=== PATIENT | female | born 1980 | race African-American/Black ===

== ENCOUNTER 2018-08-02 09:30 | Observation (INO) ==
--- NOTE | 2018-07-25 08:41 | PAT Medication Instructions ---
Medication Instructions Date of Service July 25, 2018 Home Medications acetaminophen [Tylenol] 325 mg PO Q6H PRN naproxen sodium [Aleve] 220 mg PO Q8H TN ASK your surgeon for instructions naproxen sodium [Aleve] 220 mg PO Q8H TN Take morning of surgery With a small sip of water, OTHERWISE NOTHING TO EAT OR DRINK AFTER MIDNIGHT: acetaminophen [Tylenol] 325 mg PO Q6H PRN (if needed, may be taken up to four hours before surgery) Other Notes If you have any questions please call us at [phone] or [phone] or [phone] or [phone]
--- NOTE | 2018-07-25 12:26 | Anesthesiology Consultation ---
Date of Service July 25, 2018 Assessment & Plan (1) Encounter for pre-operative examination: TEST AM DOS Chart Review Chart Review: Acceptable Risk for Surgery and Patient seen in Pre Admission Testing Teaching & Discussion Instructed NPO after midnight before surgery, except medications with 15 cc of water. Medication instructions provided according to the PAT guidelines. History Surgery Operation Date: 08/02/18 11:15 Proposed Procedures p Robotic Assisted Myomectomy - [facility] Hi Height/Weight Height: 5 ft 2.5 in Weight: 51 kg Allergies Allergy/AdvReac Type Severity Reaction Status Date / Time No Known Allergies Allergy Verified 07/17/18 14:03 Medications Home Medications Medication Instructions Recorded Confirmed Last Taken acetaminophen [Tylenol] 325 mg PO Q6H PRN 07/17/18 07/17/18 Unknown naproxen sodium [Aleve] 220 mg PO Q8H PRN 07/17/18 07/17/18 Unknown Past Medical History Medical History History of ovarian cyst Uterine fibroid Exercise / Class Metabolic Activity 1 > 8 Run/Swim/Ski/Tennis Past Surgical History Surgical History History of excision of lesion Rt wrist - benign History of tooth extraction Past Anesthesia History No Hx of Anesthesia Complications and No Family Hx of Anesthesia Complications History of PONV No Hx of PONV and Hx of Motion Sickness Social History Smoking Status: Never smoker Do You Dip or Chew Tobacco: No Hx Alcohol Use: No Hx Substance Use: No substance use type: does not use Review of Systems Pt denies any recent chest pain, shortness of breath, palpitations, cough, fever or URI. Physical Exam Vital Signs BP: 108/69 P: 80bpm SPO2: 99% RA T: 98.8 F R: 12 ENMT Mouth: + dental restorations (caps on root canals lower molar B/L); no chipped teeth and no loose teeth Thyromental Distance: > or= 3.5 Finger Breadths (3.5) Mallampati Class: II Neck normal visual inspection; neck extension not limited Respiratory normal respiratory effort Auscultation: lungs clear to auscultation bilaterally Cardiovascular Rate/Rhythm: regular rate and regular rhythm Heart Sounds: no murmur Extremities: no edema Testing Laboratory Results 07/25/18 12:28 07/25/18 12:28 Blood Type B Positive Antibody Screen NEGATIVE
[2018-07-25 12:42] LABS: Basophils # (auto) 0.01 K/uL (0-0.2); Basophils % (auto) 0.1 %; Eosinophils # (auto) 0.05 K/uL (0-0.5); Eosinophils % (auto) 0.7 %; Hematocrit (blood only) 35.4 % (37-47); Hemoglobin 11.7 g/dL (12.0-16.0); Immature Granulocytes # (auto) 0.01 K/uL (0.00-0.02); Immature Granulocytes % (auto) 0.1 %; Lymphocytes # (auto) 1.59 K/uL (1.2-3.4); Lymphocytes % (auto) 23.6 %; Mean Corpuscular Hgb Conc 33.1 g/dL (32-36); Mean Corpuscular Volume 83.9 fL (80-100); Mean Platelet Volume 9.7 fL (7.4-10.4); Monocytes # (auto) 0.57 K/uL (0.11-0.59); Monocytes % (auto) 8.5 %; Neutrophils # (auto) 4.51 K/uL (1.4-6.5); Platelet Count 291 K/uL (130-400); RDW Coefficient of Variation 13.1 % (11.5-14.5); RDW Standard Deviation 39.6 fL (36.4-46.3); Red Blood Count 4.22 M/uL (4.2-5.4); White Blood Count 6.74 K/uL (4.8-10.8)
[~2018-08-02 09:30] MED LIST: CEFAZOLIN 2000MG 2,000 MG/15 ML SYR IV SCH; LACTATED RINGER'S 1,000 ML IV SCH; LR 15ML/HR IV SCH; SODIUM CHLORIDE 0.9% 1000ML 1,000 ML IV SCH
--- NOTE | 2018-08-02 10:43 | History & Physical Bridge Note ---
Date of Service August 02, 2018 History & Physical Bridge Note I have examined the patient, reviewed the History & Physical and in the interval since the performance of the History & Physical I have noted the following changes of clinical significance: no changes noted
[2018-08-02] MEDS ORDERED: DEXAMETHASONE SOD INJ 4 MG/ML VIAL ONE (11:34)
[2018-08-02] MEDS ORDERED: ONDANSETRON INJ 2 MG/ML 2 ML VIAL IV PRN ×2 (11:34→15:01)
[2018-08-02] MEDS ORDERED: HYDROmorphone INJ 0.5 MG/0.5 ML SYR IV PRN (11:34)
[2018-08-02] MEDS ORDERED: NEOSTIGMINE METHYLSULFATE 5 MG/5 ML SYR ONE (11:34)
[2018-08-02] MEDS ORDERED: ATROPINE SULFATE 0.1 MG/ML 10ML SYR IV PRN (11:34)
[2018-08-02] MEDS ORDERED: KETOROLAC 30 MG/ML VIAL IV PRN ×2 (11:34→23:15)
[2018-08-02] MEDS ORDERED: ONDANSETRON INJ 2 MG/ML 2 ML VIAL ONE ×2 (11:34→13:51)
[2018-08-02] MEDS ORDERED: PROPOFOL IV EMULSION 10 MG/ML 20 ML VIAL IV ONE (11:34)
[2018-08-02] MEDS ORDERED: LIDOCAINE HCL 2% 2 ML VIAL/AMP(20MG/ML) INFIL ONE (11:34)
[2018-08-02] MEDS ORDERED: GLYCOPYRROLATE 0.2 MG/ML VIAL ONE ×2 (11:34→13:51)
[2018-08-02] MEDS ORDERED: MIDAZOLAM HCL 1 MG/ML 2ML VIAL ONE (11:35)
[2018-08-02] MEDS ORDERED: fentaNYL citrate 100 MCG/2 ML VIAL ONE (11:35)
[2018-08-02] MEDS ORDERED: BUPIVACAINE 0.5 % 5 MG/1 ML MPF 30ML VIAL ONE (11:57)
[2018-08-02] MEDS ORDERED: VASOPRESSIN 20 UNIT/ML VIAL ONE (12:19)
[2018-08-02] MEDS ORDERED: HYDROmorphone INJ 2 MG/ML SYR/VIAL ONE (12:30)
[2018-08-02] MEDS ORDERED: TISSEEL FIBRIN SEALANT 10ML TOP ONE (13:25)
[2018-08-02] MEDS ORDERED: ROCURONIUM BROMIDE 10 MG/ML 5 ML VIAL ONE (13:51)
[2018-08-02] MEDS ORDERED: FLOSEAL HEMOSTATIC MATRIX 10ML TOP ONE (13:51)
--- NOTE | 2018-08-02 14:58 | Post Operative Brief Note ---
Immediate Post Op Note v1 Date of Surgery August 02, 2018 Pre & Post Diagnosis Operation Date: 08/02/18 11:15 Pre-Op Diagnosis: Uterine fibroids, pelvic pain Post-Op Diagnosis: Uterine fibroids, pelvic pain Procedure Operation Date: 08/02/18 11:15 Actual Procedures p Robotic Assisted Laparoscopic Myomectomy - Krissy Hi Surgeon [facility] Hi Nurse Specialist Chastity Baltazar PA-C Estimated Blood Loss 20 Findings Consistent with Post-Op Diagnosis Drains Cole Catheter (16 occitan cole placed by Akanksha SOFIA placed at begining of surgery. Cole discontinued at end of surgery by Sarah Edwards RN without any difficulty, clear yellow urine, 800ml urine output obtained)
[2018-08-02] MEDS ORDERED: OXYCODONE/ACETAMINOPHEN 5mg/325mg TAB PO PRN (15:01)
[2018-08-02] MEDS ORDERED: METOCLOPRAMIDE HCL INJ 5 MG/ML 2 ML VIAL IV PRN (15:01)
--- NOTE | 2018-08-02 15:28 | Operative Report ---
Post Operative Report Pre & Post Diagnosis Operation Date: 08/02/18 11:15 Pre-Op Diagnosis: Uterine fibroids, pelvic pain Post-Op Diagnosis: Uterine fibroids, pelvic pain Procedure Operation Date: 08/02/18 11:15 Actual Procedures p Robotic Assisted Laparoscopic Myomectomy - Kriss[facility] Hi Surgeon Kriss[facility] Hi Contract Modeler Chastity Baltazar PA-C Estimated Blood Loss 20 Findings See Below 1. 8 cm anteverted uterus 2. 5 cm anterior subserosal myoma near the right cornua with a stalk 3. 2-3 cm anterior subserosal myoma on the right uterine boday 4. 0.5-1 cm fundal subserosal left myoma 5. 2-3 cm anterior subserosal myoma near the left cornua 6. 0.5-1 cm posterior subserosal on the right uterine body 7. 1 cm posterior myoma near the left uterosacral ligament 8. Normal appearing left fallopian tube and ovary 9. Right fallopian tube with a simple appearing paratubal cyst 10. Normal appearing right ovary 11. Anterior and posterior cul-de-sacs free of adhesions or lesions 12. Normal appearing liver edge 13. Normal appearing appendix Fluids 1500 ml Specimens Six uterine fibroids Drains Cole catheter removed prior to the end of the procedure Anesthesia Type General Complications none Disposition Disposition: Recovery Room Indications 38 yo with multiple uterine fibroids experiencing pelvic pain, pelvic pr essure, and heavy menstrual bleeding desiring surgical management. Description of Procedure The patient was taken to the operating room where she was identified as herself, placed in the dorsal lithotomy position with general anesthesia administered without difficulty. She was prepped and draped in the usual sterile fashion. A cole catheter was inserted without difficulty. A weighted speculum was placed in the vagina and a Parker retractor was placed anteriorly. The anterior lip of the cervix was grasped with a single-tooth tenaculum. The uterus was sounded to 8 cm with a uterine sound. A stay suture using 0 Vicryl on a UR-6 was placed on the anterior lip of the cervix. The cervix was dilated to accommodate the Advincula uterine manipulator, which was introduced into the uterine cavity with the intrauterine balloon insufflated and the appropriately sized colpotomy cup placed around the cervix snugly. The Parker, tenaculum and speculum were removed from the patients vagina, and attention was turned to the patients abdomen. A 12-mm incision was made approximately two fingerbreadths above the umbilicus, and direct entry with a 12-mm trocar was introduced with a 0-degree laparoscope confirming intraabdominal placement. The abdomen was insufflated with CO2 gas. Findings were that of a multi-fibroid uterus measuring 8 cm and normal fallopian tubes (simple appearing right paratubal cyst) and ovaries bilaterally. The patient was placed in steep Trendelenburg positioning and the bowel was displaced superiorly with the robotic trocar arms placed in the left lower quadrant, left upper quadrant, and right lower quadrant respectively under direct visualization accommodating the 8-mm robotic trocar site. A final fifth incision was made in the right upper quadrant to accommodate a 12-mm surgical aide port site. The da Laura robot was subsequently docked without any complications. The base of all fibroids were then injected with a dilute solution of vasopression. Using bipolar cautery and the vessel sealer, each fibroid was grasped, coagulated and cut. After removal of all fibroids, an 0 V-loc sutures was introduced into the pelvic cavity and the fibroids were sutured together like a string of pearls. Attention was then returned to the uterus and all uterine defects from excised fibroids were then closed with 0 V-loc in a running fashion. Hemostasis was noted. The uterine manipulator was then removed and an medium size EEA sizer was inserted into the posterior vagina. The Endoshears were then used to make a posterior colpotomy. The string of fibroids was then grasped with a Ana clamp and removed through the vagina. The posterior colpotomy was then closed with 0 V-loc in a running fashion. Hemostasis was achieved. The pelvis was copiously irrigated. Floseal and Tisseal was then applied to the the posterior colpotomy and all excised areas on the uterus. Hemostasis was once again noted. All robotic instruments were removed and the robot was undocked. The two 12-mm fascial defects in the right upper quadrant and the above the umbilicus were closed with #0 Vicryl stitch on a Rich Rukhsana. The five skin incisions were closed with #4-0 Monocryl and dermabond for excellent hemostasis and reapproximation. The cole catheter was removed without difficulty. Needle, sponge, and instrument count was correct x 2. The patient was taken to recovery room in stable and awake condition with plans for discharge home. Surgery was discussed in depth with the patients family with all questions answered. I attest to the content of the Intraoperative Record and any orders documented therein. Any exceptions are noted below.
--- NOTE | 2018-08-02 15:46 | Anesthesiology Progress Note ---
Date of Service August 02, 2018 Anesthesia Post Procedure Vital Signs Vital Signs: Temp Pulse Pulse Resp BP BP Pulse Ox 08/02/18 15:35 84 14 126/76 100 08/02/18 15:25 73 16 123/81 100 08/02/18 15:18 36.4 C L 87 19 144/104 H 99 08/02/18 09:53 36.9 C 91 H 16 131/90 98 Pain Intensity Anterior Abdomen: Pain Intensity: 4 Transfer of Care Handoff Completed per policy Notes Mental Status: alert / awake / arousable Patient Amnestic to Procedure: Yes Nausea / Vomiting: adequately controlled Pain: adequately controlled Airway Patency, RR, SpO2: stable & adequate BP & HR: stable & adequate Hydration State: stable & adequate Anesthetic Complications: no major complications apparent and Pt Satisfied with anesthetic care
[2018-08-02] MEDS ORDERED: ONDANSETRON INJ 2 MG/ML 2 ML VIAL IV STA (18:17)
[2018-08-02] MEDS ORDERED: LACTATED RINGER'S 500 ML IV ONE (18:17)
[2018-08-02] MEDS ORDERED: SCOPOLAMINE 1.5 MG TDSY TD ONE (18:17)
[2018-08-02] MEDS ORDERED: ACETAMINOPHEN 1,000 MG/100 ML VIAL IV STA (18:17)
[2018-08-02] MEDS ORDERED: SCOPOLAMINE 1.5 MG TDSY ONE (18:18)
[2018-08-02] MEDS ORDERED: ACETAMINOPHEN 1000 MG/100 ML IV IV ONE (18:18)
[2018-08-02] MEDS ORDERED: PROMETHAZINE HCL 12.5 MG in SODIUM CHLORIDE 0.9% 50 ML IV STA (19:18)
[2018-08-02] MEDS ORDERED: PROMETHAZINE HCL 12.5 MG in SODIUM CHLORIDE 0.9% 50 ML IV PRN (23:15)
[2018-08-02] MEDS ORDERED: ACETAMINOPHEN 325 MG TAB PO PRN (23:15)
[2018-08-03] MEDS ORDERED: CHECK SCOPOLAMINE PATCH PLACEMENT SCH
[2018-08-03] MEDS: IBUPROFEN 600 MG TAB PO PRN ×2 (00:15→09:00)
[2018-08-03] MEDS: ONDANSETRON INJ 2 MG/ML 2 ML VIAL IV PRN ×2 (00:20→08:06)
[2018-08-03 07:44] LABS: Hematocrit (blood only) 32.8 % (37-47); Hemoglobin 11.1 g/dL (12.0-16.0); Mean Corpuscular Hgb Conc 33.8 g/dL (32-36); Mean Corpuscular Volume 82.6 fL (80-100); Mean Platelet Volume 10.5 fL (7.4-10.4); Platelet Count 281 K/uL (130-400); RDW Coefficient of Variation 12.9 % (11.5-14.5); RDW Standard Deviation 39.5 fL (36.4-46.3); Red Blood Count 3.97 M/uL (4.2-5.4); White Blood Count 16.04 K/uL (4.8-10.8)
[2018-08-03 07:46] LABS: Lymphocytes % (manual) 8.7 %; Monocytes # (manual) 1.25 K/uL (0.11-0.59); Monocytes % (manual) 7.8 %; Neutrophils % (manual) 83.5 %; RBC Morphology Unremarkable
--- NOTE | 2018-08-03 10:08 | Gynecologic Progress Note ---
Date of Service August 03, 2018 Assessment & Plan (1) S/P myomectomy: POD#1. s/p Robotic assisted Myomectomy. Nausea improving. Able to tolerate water and crackers. Plan to discharge home. Advance diet as tolerated. Patient provided discharge instructions and medications. Patient to follow up at [facility] on 08/23/18. Subjective 38 yo s/p Robotic assisted myomectomy. POD #1. Patient with nausea following the procedure which warranted a 23 hour observation. Patient reports nausea improved this morning and able to tolerate water and crackers. Pain controlled with IV medications. Ambulating and urinating without difficulty. Denies flatus. Denies fevers, chills, SOB or CP. Review of Systems Review of Systems: All systems reviewed & are unremarkable except as noted in HPI & below Physical Exam Constitutional: WD/WN, vitals as above Respiratory: normal respiratory effort, lungs clear to auscultation Cardiovascular: RRR, no murmur, no edema Gastrointestinal (Abdomen): Inspection/Auscultation: abdomen normal to inspection Percussion/Palpation: abdomen soft Incisions: C/D/I. No erythema or edema. Results & Data Vital Signs (Past 12 Hours) Vital Signs Temp Pulse Pulse Resp BP Pulse Ox 08/03/18 09:51 36.9 C 85 97 H 20 111/77 98 08/03/18 08:45 36.9 C 97 H 20 111/77 98 08/03/18 04:00 36.7 C 70 18 120/84 98 08/02/18 23:30 36.8 C 67 18 124/86 97 08/02/18 22:30 98 H 16 100/64 97
--- NOTE | 2018-08-03 10:15 | Discharge Summary ---
Date of Service August 03, 2018 Admission HPI Per Admitting Provider 38 year old with uterine fibroids. Patient reports right sided pelvic pain since the summer. Pain is throbbing in nature, constant, usually 3/10, but at times can worsen with radiation to the hip. Pain worse at the end of the day. No difference of pain with or without menses. Denies urinary symptoms. Endorses mild constipation. Patient seen PCP in Jan 2018 for RLQ pain and had subsequent ultrasound, CT Scan, and MRI. MRI revealed multiple subserosal pedunculated fibroids. [employer] History: Monthly menses, lasting 4-5 days with moderate bleeding. Not currently sexually active. No history of abnormal pap smears. Last pap smear Dec 2016 wnl. Admission Exam (Per Admitting) Constitutional WD/WN, vitals as above Respiratory normal respiratory effort, lungs clear to auscultation Cardiovascular RRR, no murmur, no edema Gastrointestinal (Abdomen) Inspection/Auscultation: abdomen normal to inspection Percussion/Palpation: abdomen soft Discharge Data Procedures Performed Operation Date: 08/02/18 11:15 Actual Procedures p Robotic Assisted Laparoscopic Myomectomy - [facility] (1) S/P myomectomy: POD#1. s/p Robotic assisted Myomectomy. Nausea improving. Able to tolerate water and crackers. Plan to discharge home. Advance diet as tolerated. Patient provided discharge instructions and medications. Patient to follow up at [facility] on 08[facility]23[facility]. Discharge Instructions POST OPERATIVE: BOWEL FUNCTION/MEDICATIONS: 1. Constipation pain and discomfort are the most common complaints 5-7 days after surgery. Points 2-6 address the things that can help. 2. Chewing gum can help stimulate the gut and help improve digestion and motility. 3. Milk of Magnesia 1-2 times per day until return of bowel function. 4. Colace is a stool softener that helps. Taking this 2-3 times per day until bowel function returns to normal is highly recommended. 5. Dulcolax is a laxative that may be used if several days have passed without a bowel movement. Alternatively Miralax may be used daily instead. 6. Drink plenty of fluids as this will also reduce constipation. 7. Narcotic pain medications will be prescribed by your physician. They are safe to use and we encourage you to use them. If you are not allergic, ibuprofen will also be prescribed. Many patients will be able to transition off of the narcotic medications to ibuprofen by postoperative day 3. ACTIVITY RECOMMENDATIONS: 1. Get plenty of rest and listen to your body. If you are tired, take a nap. 2. You may shower, but do not take a tub bath until you see your doctor at the 2 week post operative visit. 3. Absolutely NO intercourse and nothing in the vagina until you are examined by your doctor. At that visit it will be determined when such activities can be resumed. This can range from 6-12 weeks after your surgery depending on healing time. 4. The main physical activity in the first week should be walking. By the second week you can slowly increase activity. There are no limits on walking up and down stairs. 5. Do not lift more than 5-10 lbs for 4 weeks. Remember the "one-handed rule", i.e. if you can lift something with only one hand it's likely okay. 6. Minimize boot liner maker like vacuuming and exercising for 4 weeks. "Overdoing it" can lead to incisions not healing, pain and vaginal bleeding, so again, listen to your body. 7. Driving can be resumed when you feel able. Do not drive within 24 hours of taking a narcotic medication. EXPECTATIONS: 1. Vaginal spotting, bleeding and discharge are common after surgery. There may even be an odor to the discharge which is often related to sutures used in the vagina. If you experience heavy vaginal bleeding, call the office number day or night [phone] 2. Bladder discomfort is common after surgery from the catheter. This usually resolves in 1-2 weeks. 3. By the end of the 3rd or 4th week you should be feeling much better. It may take up to 6 weeks for your energy levels to return to normal. 4. Narcotic medications have side effects such as: dizziness, headache, nausea and/or vomiting. If you suspect your pain medication is causing problems, call our office and we may be able to prescribe an alternate medication. 5. The skin incisions are often covered with a liquid bandage. This will gradually peel off over time. CALL THE OFFICE IF YOU HAVE ANY OF THE FOLLOWIN. Temperature of 101 degrees or higher. 2. Severe abdominal or pelvic pain not relieved by pain medication. 3. Persistent nausea or vomiting. 4. Increased pain with urination or difficulty urinating. 5. Bright red bleeding that soaks more than 1 pad per hour. CONTACT PHONE NUMBERS: Main Office: [phone] Avoid all tobacco products. If you need help to stop smoking, call [place]'s FREE QUITLINE at . This is a free call.
--- NOTE | 2018-08-03 10:40 | Anesthesiology Progress Note ---
Date of Service August 03, 2018 Anesthesia Post Procedure Vital Signs Vital Signs: Temp Pulse Pulse Pulse Resp BP BP 08/03/18 09:51 36.9 C 85 97 H 20 111/77 08/03/18 08:45 36.9 C 97 H 20 111/77 08/03/18 04:00 36.7 C 70 18 120/84 08/02/18 23:30 36.8 C 67 18 124/86 08/02/18 22:30 98 H 16 100/64 08/02/18 21:40 92 H 16 103/68 08/02/18 21:00 84 18 119/78 08/02/18 20:30 36.8 C 102 H 20 129/79 08/02/18 18:25 85 18 131/85 08/02/18 18:00 73 18 157/93 H 08/02/18 17:15 83 16 124/82 08/02/18 16:45 64 16 130/82 08/02/18 16:05 36.4 C L 61 16 117/74 08/02/18 15:55 60 18 120/76 08/02/18 15:45 70 12 132/85 08/02/18 15:35 84 14 126/76 08/02/18 15:25 73 16 123/81 08/02/18 15:18 36.4 C L 87 19 144/104 H Pulse Ox 08/03/18 09:51 98 08/03/18 08:45 98 08/03/18 04:00 98 08/02/18 23:30 97 08/02/18 22:30 97 08/02/18 21:40 100 08/02/18 21:00 97 08/02/18 20:30 99 08/02/18 18:25 100 08/02/18 18:00 100 08/02/18 17:15 08/02/18 16:45 98 08/02/18 16:05 99 08/02/18 15:55 99 08/02/18 15:45 100 08/02/18 15:35 100 08/02/18 15:25 100 08/02/18 15:18 99 Pain Intensity Anterior Abdomen: Pain Intensity: 5 Notes Notes: patient D/C ADDY
== END 2018-08-03 10:15 | disposition home or self-care (01) ==
LOC: 4S2 09:30 → ASU 09:30